=== PATIENT | female | born 1990 | race Two or more races ===

== ENCOUNTER 2023-01-31 14:00 | Emergency (ER) | payer MEDICAID, MEDICARE ==
[~2023-01-31] VITALS: Ht 157.5 cm; Wt 82.0 kg
[2023-01-31 14:16] VITALS: BP 143/93; PULSE 74; RESP 18; TEMP 98; O2SAT 100
[2023-01-31] MEDS ORDERED: TETANUS, DIPHTHERIA, PERTUSSIS VAC/PF 0.5ML (>10YR OLD) IM ONE (14:30)
[2023-01-31] MEDS ORDERED: LIDOCAINE HCL/EPINEPHRINE 1%-EPI 1:100,000 20 ML VIAL INFIL ONE (14:30)
== END 2023-01-31 16:14 | disposition home or self-care (01) ==
LOC: ER 14:00
DX: S01.81XA Laceration without foreign body of other part of head, initial encounter (principal); J45.909 Unspecified asthma, uncomplicated; X58.XXXA Exposure to other specified factors, initial encounter; Y93.89 Activity, other specified; Y92.89 Other specified places as the place of occurrence of the external cause; Y99.8 Other external cause status
CPT/HCPCS: 12011; 99282; Z7610 ×2; J3490

== ENCOUNTER 2023-02-11 15:09 | Emergency (ER) | payer MEDICAID ==
[~2023-02-11] VITALS: Ht 157.5 cm; Wt 82.0 kg
[2023-02-11 15:33] VITALS: BP 126/82; O2SAT 100
[2023-02-11 17:32] VITALS: PULSE 78; RESP 16; TEMP 98.9
== END 2023-02-11 17:33 | disposition home or self-care (01) ==
LOC: ER 15:13
DX: S01.81XD Laceration without foreign body of other part of head, subsequent encounter (principal); J45.909 Unspecified asthma, uncomplicated; Z90.710 Acquired absence of both cervix and uterus; Z85.9 Personal history of malignant neoplasm, unspecified; X58.XXXD Exposure to other specified factors, subsequent encounter
CPT/HCPCS: 99281